=== PATIENT | female | born 1975 | race Caucasian/White ===

== ENCOUNTER 2017-11-04 08:05 | Inpatient (IN) | payer BC ==
[~2017-11-04] VITALS: Ht 160 cm; Wt 138.9 kg
[2017-11-04] VITALS (14 sets, daily range): BP systolic 117–183; BP diastolic 52–99
[~2017-11-04 08:05] MED LIST: BYDUREON2 MG SQ; CARAFATE1 GM PO; LISINOPRIL-HCT1 EAC2 PO; METFORMIN HCL1000 MG PO; OMEPRAZOLE20 MG PO; Z.0.LISINOPRIL10 MG PO; [UNRECOGNIZED DRUG - OTHER]
[2017-11-04] MEDS ORDERED: ASPIRIN 81 MG CHEW TAB PO STA (08:17)
[2017-11-04] MEDS ORDERED: ENALAPRILAT IV INJ 1.25 MG/ML VIAL IV STA (08:21)
[2017-11-04] MEDS ORDERED: CLONIDINE HCL 0.1 MG TAB PO ONE (08:30)
--- NOTE | 2017-11-04 08:43 | Diagnostic Imaging Report ---
PROCEDURE:X-RAY CHEST, ONE VIEW COMPARISON:Patients [facility], DX, CHEST SINGLE (PORTABLE), 09/16/2012, 9:34. INDICATIONS:HX OF PNEUMONIA FINDINGS: There are no consolidations, pleural effusions or pneumothorax. The cardiomediastinal silhouette is prominent. The pulmonary vasculature is normal. There are no acute osseous abnormalities. CONCLUSION: No acute cardiopulmonary abnormality. Yeison Michaels D.O. Dictated by: Yeison Michaels D.O. on 11/04/2017 at 8:52 Electronically approved by: Yeison Michaels D.O. on 11/04/2017 at 8:53
[2017-11-04 08:44] LABS: BASOPHILS % 0.4 % (0.0-1.0); EOSINOPHILS # (AUTO) 0.1 (0.0-0.4); EOSINOPHILS % 2.1 % (0.0-6.0); HEMATOCRIT 46.4 % (34.2-44.1); HEMOGLOBIN 15.1 g/dL (12.0-16.0); LYMPHOCYTES # (AUTO) 1.9 (1.0-3.2); LYMPHOCYTES % 37.5 % (18.0-39.1); MEAN CORPUSCULAR HEMOGLOBIN 27.2 pg (28-32); MEAN CORPUSCULAR HGB CONC 32.5 g/dL (31-35); MEAN CORPUSCULAR VOLUME 83.6 fL (81-99); MONOCYTES # (AUTO) 0.2 (0.2-0.8); MONOCYTES % 4.3 % (4.4-11.3); NEUTROPHILS # (AUTO) 2.9 (2.1-6.9); NEUTROPHILS % 55.3 % (38.7-80.0); PLATELET COUNT 187 x10e3/uL (140-360); RED BLOOD COUNT 5.55 x10e6/uL (3.6-5.1); RED CELL DISTRIBUTION WIDTH 13.3 % (11.7-14.4)
[2017-11-04 08:47] LABS: BILIRUBIN,URINE NEGATIVE (NEGATIVE); CLARITY,URINE CLOUDY (CLEAR); COLOR,URINE RED (YELLOW); KETONES,URINE TRACE (NEGATIVE); LEUKOCYTE ESTERASE ,URINE 2+ (NEGATIVE); NITRITE,URINE NEGATIVE (NEGATIVE); PROTEIN,URINE DIPSTICK 1+ (NEGATIVE); URINE UROBILINOGEN 0.2 mg/dL (0.2 - 1)
[2017-11-04 09:05] LABS: ALANINE AMINOTRANSFERASE 54 IU/L (0-55); ALBUMIN 3.6 g/dL (3.5-5.0); ALBUMIN/GLOBULIN RATIO 0.9 (0.8-2.0); ALKALINE PHOSPHATASE 82 IU/L (40-150); ANION GAP 14.9 mmol/L (8-16); BLOOD UREA NITROGEN 13 mg/dL (7-26); BUN/CREATININE RATIO 18 (6-25); CARBON DIOXIDE 26 mmol/L (22-29); CHLORIDE 103 mmol/L (98-107); CREATINE KINASE 67 IU/L (29-168); CREATININE, SERUM 0.73 mg/dL (0.57-1.11); EST GLOMERULAR FILTRATION RATE > 60 ML/MIN (60-); GLUCOSE 233 mg/dL (74-118); POTASSIUM 3.9 mmol/L (3.5-5.1); SODIUM 140 mmol/L (136-145)
[2017-11-04 09:15] LABS: EPITHELIAL CELLS,URINE RARE /LPF; RBC,URINE >50 /HPF (0-5)
[2017-11-04 09:16] LABS: INR 0.93; PROTHROMBIN TIME 12.9 seconds (11.9-14.5)
[2017-11-04 09:17] LABS: PARTIAL THROMBOPLASTIN TIME 26.5 seconds (23.8-35.5)
[2017-11-04] MEDS ORDERED: NITROFURANTOIN MACROCRYSTALS 100 MG CAP PO ONE (11:00)
[2017-11-04] MEDS ORDERED: ONDANSETRON HCL INJ 2 MG/ML VIAL IV PRN ×3 (11:30→20:45)
[2017-11-04] MEDS ORDERED: MORPHINE SULFATE 4 MG/ML SYR IV PRN (11:30)
[2017-11-04] MEDS ORDERED: ASPIRIN 81 MG CHEW TAB PO ONE (11:45)
[2017-11-04] MEDS ORDERED: MORPHINE SULFATE 2 MG/ML SYR IV PRN (11:45)
[2017-11-04] MEDS ORDERED: DEXTROSE 50% SYRINGE 50 ML IV PRN (11:45)
[2017-11-04] MEDS ORDERED: SODIUM CHLORIDE FLUSH 10 ML SYR INJ PRN (11:45)
[2017-11-04] MEDS ORDERED: ENALAPRILAT IV INJ 1.25 MG/ML VIAL IV PRN (11:45)
--- OUTSIDE RECORDS SUMMARY | 2017-11-04 11:53 | XMS REPORT ---
Author Author [facility] Address Unknown Phone Unavailable Care Team Providers [facility] Attendant Name Role Phone ALMA BYNUM Unavailable Unavailable Problems This patient has no known problems. Allergies, Adverse Reactions, Alerts This patient has no known allergies or adverse reactions. Medications This patient has no known medications. Results Test Description Test Time Test Comments Text Results Atomic Results Result Comments CHEST SINGLE (NOT PORTABLE) [place] [address] Patient Name: NURIA GARVIN MR #: [id number] : 1975 Age/Sex: 42/F Req #: [id number] Adm Physician: Ordered by: ALMA BYNUM MD Report #: [id number] Location: ER Room/Bed: __ Procedure: [id number] DX/CHEST SINGLE (NOT PORTABLE) Exam Date: 11/04/17 Exam Time: 0825 REPORT STATUS: Signed PROCEDURE: X-RAY CHEST, ONE VIEW COMPARISON: [facility], DX, CHEST SINGLE (PORTABLE), 09/16/2012, 9:34. INDICATIONS: HX OF PNEUMONIA FINDINGS: There are no consolidations, pleural effusions or pneumothorax. The cardiomediastinal silhouette is prominent. The pulmonary vasculature is normal. There are no acute osseous abnormalities. CONCLUSION: No acute cardiopulmonary abnormality. Fang Michaels D.O. Dictated by: Fang Michaels D.O. on 11/04/2017 at 8:52 Electronically approved by: Fang Michaels D.O. on 11/04/2017 at 8:53 Dictated By: FANG MICHAELS DO 2 Transcribed By: JESE on 11/04/17852 COPY TO: ALMA BYNUM MD
[2017-11-04] MEDS: NITROGLYCERIN 0.1MG/HR PATCH TOP SCH (12:35)
[2017-11-04] MEDS: FAMOTIDINE 20 MG TAB PO SCH ×2 (12:35→21:23)
[2017-11-04] MEDS: INSULIN REGULAR, HUMAN 100 UNIT/1 ML 3ML VIAL SQ SCH ×2 (16:37→21:37)
[2017-11-04 16:45] LABS: CREATINE KINASE MB 3.7 ng/mL (0.00-5.00)
[2017-11-04] MEDS: HYDROCHLOROTHIAZIDE 25 MG TAB PO SCH (18:18)
[2017-11-04] MEDS: ENALAPRIL MALEATE 10 MG TAB PO SCH (18:19)
[2017-11-04] MEDS: MORPHINE SULFATE 2 MG/ML SYR IV PRN ×2 (18:19→23:05)
--- NOTE | 2017-11-04 18:29 | Consultation ---
DATE OF CONSULTATION: November 04, 2017 REASON FOR CONSULTATION: Chest pain. HISTORY: A 42-year-old lady poorly compliant, diabetic and hypertensive. She came to the emergency room with left shoulder pain and left chest pain, very severe. Patient's pain was very severe. In emergency room, her systolic blood pressure was 200. She was given IV Enalapril, morphine and her chest pain subsided. The patient denied having any trauma to that shoulder or doing anything heavy. Patient had 2 sets of cardiac enzymes that are normal. Cardiac consultation is obtained. There is no history of recent travel. There is no orthopnea. No paroxysmal nocturnal dyspnea. Patient does have sleep apnea. REVIEW OF SYSTEMS: CARDIAC: No exertional angina. Easy fatigability and shortness of breath on exertion. No orthopnea. No paroxysmal nocturnal dyspnea. No syncope or presyncope. No prior anginal symptoms or any chest pain. PULMONARY: No cough. No hemoptysis. No recent travel. Chronic leg edema, but with no change in pattern. No pleuritic chest pain. GI: No hematemesis. No melena. : No hematuria. No dysuria or increased frequency of urination. NEUROMUSCULAR: Low back pain and knee pains. Her extremities chronic mild lymphedema. NEUROLOGIC: No weakness. No seizure activity. HEMATOLOGICAL: No easy bruising and bleeding. ENDOCRINE: Diabetic, and not taking medication. SOCIAL HISTORY: She is . She lives with her boyfriend and her children. She is nonsmoker, [id number]-ghwirsz. She is an waste recycler. HOME MEDICATIONS: Not taking any medication. PAST MEDICAL HISTORY: 1. Obesity. 2. Hypertension. 3. Diabetes mellitus. 4. Poorly compliant. 5. Several eye surgeries. 6. Lazy eyes. 7. History of kidney stone. 8. Admission to this institution with abdominal pain and possible gallstone. 9. . 10. Arthroscopic knee surgery. FAMILY HISTORY: Father at age 65 had PCI and has atrial fibrillation and lymphedema. Mother diabetic at age 69. One healthy brother. No sisters. Three healthy children. PHYSICAL EXAMINATION VITALS: Height of 53, weight of 189 pounds. Blood pressure 150/80. Heart rate of 80. Respiratory rate of 18. Afebrile. HEENT: Pupils are reactive. NECK: No elevation of jugular venous pulsation. CHEST: Clear to auscultation and percussion. HEART: PMI in 5th left intercostal space. Normal 1st and 2nd heart sounds. ABDOMEN: Soft with good bowel sounds. EXTREMITIES: No cyanosis. No clubbing. Mild peripheral edema. NEUROLOGIC: Nonfocal. LABORATORY DATA: Two sets of cardiac enzymes are normal. Electrolytes showed sodium of 140, potassium of 3.9, BUN 13, creatinine 0.7, hemoglobin 15.1, hematocrit 46%. Urinalysis positive for blood and protein. EKG showing normal sinus rhythm. IMPRESSION 1. Morbidly obese. 2. Diabetic. 3. Hypertension. 4. Poorly compliant with medication. 5. Lazy eyes. 6. Chronic mild peripheral edema. 7. Chest pain. Cardiac-wells would recommend serial cardiac enzymes, observation on telemetry, controlling the blood pressure. Workup is discussed. Will schedule patient for cardiac stress test, if no more chest pain and cardiac enzymes are normal. Will check venous Doppler of the lower extremities and an echocardiogram. Case discussed and explained, Questions are answered. Addendum: Patient had severe chest pain with diaphoresis, EKG showed st depression in many leads, rapid response is activated, Acute M.I., I activated acetylene gas compressor team for emergency cardiac cath. with possible intervention, patient given Plavix, explained to patient and family her status, questions are answered. Job#: [id number] GH LILLY
[2017-11-04] MEDS: NITROGLYCERIN 0.4 MG SUBL SL PRN ×2 (18:30→18:35)
[2017-11-04] MEDS ORDERED: HEPARIN SOD (PORCINE) 5,000 UNIT/ML VIAL ONE (18:44)
[2017-11-04] MEDS ORDERED: CLOPIDOGREL BISULFATE 75 MG TAB ONE (18:57)
[2017-11-04] MEDS ORDERED: HEPARIN SOD/SOD CHLORIDE 2,000 ML ONE (19:02)
[2017-11-04] MEDS ORDERED: SODIUM CHLORIDE 0.9% 1000ML 1,000 ML ONE (19:05)
[2017-11-04] MEDS ORDERED: IOPAMIDOL 300MG/ML 100 ML INFUS..BTL IV ONE (19:05)
[2017-11-04] MEDS ORDERED: MIDAZOLAM HCL 2 MG/2 ML VIAL ONE (19:06)
[2017-11-04] MEDS ORDERED: HEPARIN SOD (PORCINE) 1000 UNIT/ML 30ML ONE (19:06)
[2017-11-04] MEDS ORDERED: NITROGLYCERIN/D5W 200 MCG/ML 250 ML ONE (19:06)
[2017-11-04] MEDS ORDERED: FENTANYL CITRATE/PF 100MCG/2 ML INJ ONE (19:06)
[2017-11-04] MEDS ORDERED: LIDOCAINE HCL 2% LOCAL 20 ML VIAL ONE (19:06)
[2017-11-04] MEDS ORDERED: IOPAMIDOL 370 MG/ML 200 ML INFUS..BTL INJ ONE ×2 (19:08→19:52)
[2017-11-04] MEDS ORDERED: HYDRALAZINE HCL 20 MG/ML VIAL ONE (19:42)
[2017-11-04] MEDS ORDERED: BIVALIRUDIN 250 MG/VIAL IV ONE (19:42)
[2017-11-04] MEDS ORDERED: EPTIFIBATIDE 20 ML ONE (19:43)
[2017-11-04] MEDS ORDERED: EPTIFIBATIDE 100 ML ONE (19:43)
[2017-11-04] MEDS ORDERED: SODIUM CHLORIDE 0.9% 50ML 50 ML ONE (19:43)
[2017-11-04] MEDS ORDERED: PRASUGREL 10 MG TAB ONE (20:23)
[2017-11-04] MEDS ORDERED: CEFAZOLIN SOD 2 GM/D5W 50ML 50 ML IV ONE (20:34)
[2017-11-04] MEDS ORDERED: ZOLPIDEM TARTRATE 5 MG TAB PO PRN (20:45)
[2017-11-04] MEDS ORDERED: SIMVASTATIN 20 MG TAB PO SCH (21:00)
[2017-11-04] MEDS: HYDROCODONE/APAP 5MG-325MG TAB PO PRN (21:39)
[2017-11-04] MEDS: SODIUM CHLORIDE 0.9% 1000ML 1,000 ML IV SCH (21:45)
[2017-11-05] VITALS (51 sets, daily range): BP systolic 90–150; BP diastolic 46–119
--- NOTE | 2017-11-05 01:53 | Operative Report ---
DATE OF PROCEDURE: November 04, 2017 PREOPERATIVE DIAGNOSIS: POSTOPERATIVE DIAGNOSIS: TITLE OF PROCEDURES 1. Left cardiac catheterization. 2. Percutaneous coronary intervention and stenting of circumflex coronary artery. INDICATIONS: Acute myocardial infarction. TECHNICAL DETAILS: Rapid response called on this patient around 6:50 p.m. She was seen by emergency room physician, her ST segment was depressed in several leads and patient was cold, diaphoretic, and sweaty. Stat call placed to me because of that. We activated the laboratory tech. Patient taken to the laboratory tech immediately. After the usual sterile preparation and draping procedure, local Xylocaine was given for anesthesia. Versed and fentanyl were given for sedation. A 4-Swiss sheath established in the right common femoral artery. Cindy left 4 and 3DRC catheter to engage the coronaries. A decision was made to proceed with intervention. For that reason, patient had 6-Swiss sheath in place. Angiomax and Integrilin given in the usual dosage. Guiding catheter was 6-Swiss XB 3.5. Lesion was crossed. I should mention I pushed the balloon all the way to the distal vessel to break loose the clot in the circumflex coronary artery. Then balloon dilatation was done using 2.5 x 15 balloon up to 15 atmospheres. Subsequently, stent 2.75 x 20 Synergy stent was placed up to 15 atmospheres, final diameter of 2.94. Repeated angiogram showed good results. At that time, attention was done to the groin where it was closed using Angio-Seal device. There were no immediate complications and no blood loss. RESULTS A. Coronary angiogram. 1. Left main free of disease. 2. LAD 30% proximally, 80 to 90% at the distal end. 3. Circumflex coronary artery 100% totally occluded with clot. JAMEL flow 0. 4. Right coronary artery is dominant artery with 60% distally and 80% very distally in the PLV branch. PCI PROCEDURE: The balloon was 2.5 x 15 where it was placed and pushed all the way distally to break loose the clot. The stent was 2.75 x 20 Synergy stent. Lesion prior to the intervention at 100%, following intervention at 0%. JAMEL flow was 0, JAMEL flow was 3 at the end of the procedure. Patient given Effient 60 mg. Patient transferred to ICU in stable condition. Her pain subsided and she is hemodynamically stable. There were no complications and no blood loss. Job#: [id number] CF MTD[facility]
[2017-11-05 05:30] LABS: BASOPHILS % 0.4 % (0.0-1.0); EOSINOPHILS # (AUTO) 0.1 (0.0-0.4); HEMATOCRIT 42.4 % (34.2-44.1); HEMOGLOBIN 13.7 g/dL (12.0-16.0); LYMPHOCYTES # (AUTO) 2.4 (1.0-3.2); LYMPHOCYTES % 29.5 % (18.0-39.1); MEAN CORPUSCULAR HEMOGLOBIN 27.3 pg (28-32); MEAN CORPUSCULAR HGB CONC 32.3 g/dL (31-35); MEAN CORPUSCULAR VOLUME 84.5 fL (81-99); MONOCYTES # (AUTO) 0.5 (0.2-0.8); MONOCYTES % 5.7 % (4.4-11.3); NEUTROPHILS # (AUTO) 5.1 (2.1-6.9); NEUTROPHILS % 63.2 % (38.7-80.0); PLATELET COUNT 203 x10e3/uL (140-360); RED BLOOD COUNT 5.02 x10e6/uL (3.6-5.1); RED CELL DISTRIBUTION WIDTH 13.5 % (11.7-14.4)
[2017-11-05 05:41] LABS: INR 0.93; PROTHROMBIN TIME 12.9 seconds (11.9-14.5)
[2017-11-05 05:42] LABS: PARTIAL THROMBOPLASTIN TIME 26.5 seconds (23.8-35.5)
[2017-11-05 05:49] LABS: ALANINE AMINOTRANSFERASE 86 IU/L (0-55); ALBUMIN 3.3 g/dL (3.5-5.0); ALBUMIN/GLOBULIN RATIO 0.9 (0.8-2.0); ALKALINE PHOSPHATASE 68 IU/L (40-150); ANION GAP 14.6 mmol/L (8-16); BLOOD UREA NITROGEN 11 mg/dL (7-26); BUN/CREATININE RATIO 16 (6-25); CALCIUM 8.4 mg/dL (8.4-10.2); CARBON DIOXIDE 25 mmol/L (22-29); CHLORIDE 102 mmol/L (98-107); CHOL/HDL RATIO 6.7 (3.0-3.6); CHOLESTEROL 256 MD/DL (0-199); CREATINE KINASE 2203 IU/L (29-168); CREATININE, SERUM 0.68 mg/dL (0.57-1.11); EST GLOMERULAR FILTRATION RATE > 60 ML/MIN (60-); GLUCOSE 229 mg/dL (74-118); HDL CHOLESTEROL 38 MG/DL (40-60); LDL CHOLESTEROL 143 MG/DL (60-130); POTASSIUM 3.6 mmol/L (3.5-5.1); SODIUM 138 mmol/L (136-145); TRIGLYCERIDES 374 MG/DL (0-149)
[2017-11-05 06:16] LABS: THYROID STIMULATING HORMONE 1.234 uIU/mL (0.350-4.940)
[2017-11-05] MEDS: INSULIN REGULAR, HUMAN 100 UNIT/1 ML 3ML VIAL SQ SCH (07:33)
[2017-11-05] MEDS: NITROGLYCERIN 0.1MG/HR PATCH TOP SCH (09:00)
[2017-11-05] MEDS: ENALAPRIL MALEATE 10 MG TAB PO SCH (09:00)
[2017-11-05] MEDS ORDERED: ASPIRIN 325 MG TAB EC PO SCH (09:00)
[2017-11-05] MEDS: HYDROCHLOROTHIAZIDE 25 MG TAB PO SCH (09:00)
[2017-11-05] MEDS: PRASUGREL 10 MG TAB PO SCH (09:25)
[2017-11-05] MEDS: FAMOTIDINE 20 MG TAB PO SCH ×2 (09:25→21:36)
[2017-11-05] MEDS: SODIUM CHLORIDE 0.9% 1000ML 1,000 ML IV SCH ×2 (09:25→21:36)
[2017-11-05] MEDS: HYDROCODONE/APAP 5MG-325MG TAB PO PRN ×2 (09:32→19:48)
[2017-11-05] MEDS ORDERED: DEXTROSE 50% SYRINGE 50 ML IV PRN (11:30)
[2017-11-05] MEDS: INSULIN LISPRO 100 UNIT/1 ML 3ML VIAL SQ SCH ×5 (12:16→21:59)
[2017-11-05] MEDS: METOPROLOL TARTRATE 25 MG TAB PO SCH (16:56)
[2017-11-05] MEDS: ENALAPRIL MALEATE 5 MG TAB PO SCH (16:56)
[2017-11-05] MEDS ORDERED: ENALAPRIL MALEATE 10 MG TAB PO SCH (17:00)
[2017-11-05] MEDS: INSULIN DETEMIR 100 UNIT/ML PEN SQ SCH (21:36)
[2017-11-05] MEDS: CRESTOR 10MG PO SCH (21:36)
[2017-11-06] VITALS (17 sets, daily range): BP systolic 101–128; BP diastolic 59–85
[2017-11-06 05:32] LABS: BASOPHILS % 0.5 % (0.0-1.0); EOSINOPHILS # (AUTO) 0.1 (0.0-0.4); EOSINOPHILS % 2.1 % (0.0-6.0); HEMOGLOBIN 13.3 g/dL (12.0-16.0); LYMPHOCYTES # (AUTO) 2.4 (1.0-3.2); LYMPHOCYTES % 41.4 % (18.0-39.1); MEAN CORPUSCULAR HEMOGLOBIN 27.7 pg (28-32); MEAN CORPUSCULAR HGB CONC 32.4 g/dL (31-35); MEAN CORPUSCULAR VOLUME 85.2 fL (81-99); MONOCYTES # (AUTO) 0.4 (0.2-0.8); MONOCYTES % 6.4 % (4.4-11.3); NEUTROPHILS # (AUTO) 2.8 (2.1-6.9); NEUTROPHILS % 49.3 % (38.7-80.0); PLATELET COUNT 181 x10e3/uL (140-360); RED BLOOD COUNT 4.81 x10e6/uL (3.6-5.1); RED CELL DISTRIBUTION WIDTH 13.6 % (11.7-14.4)
[2017-11-06 05:55] LABS: ALANINE AMINOTRANSFERASE 57 IU/L (0-55); ALBUMIN 3.2 g/dL (3.5-5.0); ALBUMIN/GLOBULIN RATIO 0.9 (0.8-2.0); ALKALINE PHOSPHATASE 63 IU/L (40-150); ANION GAP 12.9 mmol/L (8-16); BLOOD UREA NITROGEN 13 mg/dL (7-26); BUN/CREATININE RATIO 21 (6-25); CALCIUM 8.3 mg/dL (8.4-10.2); CARBON DIOXIDE 24 mmol/L (22-29); CHLORIDE 107 mmol/L (98-107); CREATININE, SERUM 0.63 mg/dL (0.57-1.11); EST GLOMERULAR FILTRATION RATE > 60 ML/MIN (60-); GLUCOSE 204 mg/dL (74-118); POTASSIUM 3.9 mmol/L (3.5-5.1); SODIUM 140 mmol/L (136-145)
[2017-11-06] MEDS: INSULIN LISPRO 100 UNIT/1 ML 3ML VIAL SQ SCH ×7 (07:30→21:46)
[2017-11-06] MEDS: INSULIN DETEMIR 100 UNIT/ML PEN SQ SCH ×2 (09:00→21:46)
[2017-11-06] MEDS ORDERED: ASPIRIN 325 MG TAB EC PO SCH (09:00)
[2017-11-06] MEDS: PRASUGREL 10 MG TAB PO SCH (09:06)
[2017-11-06] MEDS: HYDROCHLOROTHIAZIDE 25 MG TAB PO SCH (09:06)
[2017-11-06] MEDS: ASPIRIN 81 MG ENTERIC COATED PO SCH (09:06)
[2017-11-06] MEDS: ENALAPRIL MALEATE 5 MG TAB PO SCH ×2 (09:07→16:38)
[2017-11-06] MEDS: METOPROLOL TARTRATE 25 MG TAB PO SCH ×2 (09:07→16:37)
[2017-11-06] MEDS: FAMOTIDINE 20 MG TAB PO SCH ×2 (09:07→21:18)
[2017-11-06] MEDS: SODIUM CHLORIDE 0.9% 1000ML 1,000 ML IV SCH (12:39)
[2017-11-06] MEDS: CRESTOR 10MG PO SCH (21:18)
[2017-11-07 00:12] VITALS: BP 142/69
[2017-11-07] MEDS: SODIUM CHLORIDE 0.9% 1000ML 1,000 ML IV SCH (01:29)
[2017-11-07 03:32] VITALS: BP 142/69
[2017-11-07 05:32] VITALS: BP 149/89
[2017-11-07] MEDS: INSULIN LISPRO 100 UNIT/1 ML 3ML VIAL SQ SCH ×2 (07:30→08:00)
[2017-11-07 07:48] VITALS: BP 132/79
[2017-11-07] MEDS: METOPROLOL TARTRATE 25 MG TAB PO SCH (09:00)
[2017-11-07] MEDS: HYDROCHLOROTHIAZIDE 25 MG TAB PO SCH (09:00)
[2017-11-07] MEDS: ASPIRIN 81 MG ENTERIC COATED PO SCH (09:00)
[2017-11-07] MEDS: FAMOTIDINE 20 MG TAB PO SCH (09:00)
[2017-11-07] MEDS: PRASUGREL 10 MG TAB PO SCH (09:00)
[2017-11-07] MEDS: ENALAPRIL MALEATE 5 MG TAB PO SCH (09:00)
[2017-11-07] MEDS: INSULIN DETEMIR 100 UNIT/ML PEN SQ SCH (09:00)
[2017-11-07 11:43] VITALS: BP 128/78
[2017-11-07 15:47] VITALS: BP 168/94
--- NOTE | 2017-11-07 20:44 | Discharge Summary ---
ADMITTING DIAGNOSES 1. Angina. 2. Type-2 diabetes mellitus. 3. Hypertensive heart disease. DISCHARGE DIAGNOSES 1. Coronary artery disease, status post circumflex coronary artery stent placement. 2. Hypertensive heart disease. 3. Extreme obesity. Calculated body mass index is 54. 4. Type-2 diabetes mellitus. 5. Pwp-SR-[id number] myocardial infarction, resolving. HOSPITAL COURSE: This is a 42-year-old white woman, who was initially admitted to [facility] with diagnosis of angina. The patient has an underlying history of type-2 diabetes mellitus and hypertension. During this hospitalization, the patient underwent serial cardiac enzymes as well as electrocardiograms, which did reveal findings consistent with acute myocardial infarction. The patient's troponin I got as high as 57.5. The patient was seen by his cash applications specialist, namely Dr. Yin Mcdaniel, who performed a left heart catheterization. During this procedure, the patient underwent successful circumflex coronary stent placement. The patient tolerated the left heart catheterization well. Her hospitalization was unremarkable. The patient underwent a 2-D echocardiogram, which revealed a preserved left ventricular ejection fraction of 60% to 65%. The patient's condition on discharge was stable. DISCHARGE MEDICATIONS 1. Levemir insulin 10 units in the morning and 20 units at night. 2. Humalog insulin 10 units 3 times a day with meals. 3. Effient 10 mg daily. 4. Crestor 20 mg nightly. 5. Losartan/hydrochlorothiazide 50 and 12.5 once daily. 6. Metoprolol succinate 25 mg daily. 7. [place] 5 per 325 one every 4 hours p.r.n. chest pain, 20 prescribed, no refills. FOLLOWUP INSTRUCTIONS: The patient was instructed to follow up with Dr. Yin Mcdaniel on Saturday, November 11, 2017. The patient was instructed to follow up with Dr. Vishal Archibald, her primary care physician, within the next 2 weeks. FAB CHAND MD Job#: [id number] cc:MD YIN HINES MD
== END 2017-11-07 16:31 | disposition home or self-care (01) | DRG 246 ==
LOC: ER 08:05 → ERHOLD 11:50 → IMCU 12:58 → ICU 19:46 → OBSVTOIN 11-05 07:43 → MED/SURG3 11-06 16:36
PROC: B215YZZ Fluoroscopy of Left Heart using Other Contrast (ICD-10-PCS; principal; 2017-11-05)
PROC: 027044Z Dilation of Coronary Artery, One Artery with Drug-eluting Intraluminal Device, Percutaneous Endoscopic Approach (ICD-10-PCS; principal; 2017-11-05)
PROC: B2111ZZ Fluoroscopy of Multiple Coronary Arteries using Low Osmolar Contrast (ICD-10-PCS; principal; 2017-11-05)
PROC: 4A023N7 Measurement of Cardiac Sampling and Pressure, Left Heart, Percutaneous Approach (ICD-10-PCS; principal; 2017-11-05)
DX: I21.4 Non-ST elevation (NSTEMI) myocardial infarction (principal); I50.43 Acute on chronic combined systolic (congestive) and diastolic (congestive) heart failure; I26.99 Other pulmonary embolism without acute cor pulmonale; Z68.43 Body mass index [BMI] 50.0-59.9, adult; I13.0 Hypertensive heart and chronic kidney disease with heart failure and stage 1 through stage 4 chronic kidney disease, or unspecified chronic kidney disease; N18.4 Chronic kidney disease, stage 4 (severe); E66.01 Morbid (severe) obesity due to excess calories; E11.22 Type 2 diabetes mellitus with diabetic chronic kidney disease; I25.10 Atherosclerotic heart disease of native coronary artery without angina pectoris; E11.65 Type 2 diabetes mellitus with hyperglycemia; Z79.4 Long term (current) use of insulin
CPT/HCPCS: 36140; 36415; 71045; 77002; 80053; 80061; 81001; 82550; 82553; 82948; 83036; 83880; 84443; 84484; 85025; 85379; 85610; 85730; 87086; 93005; 93306; 93458; 93970; 96372; 99284; C1766; C9600; G0378; J0360; J0583; J1327; J1644; J2001; J2250; J2270; J2405; J7030; Q9967